=== PATIENT | male | born 1940 | race Caucasian/White ===

== ENCOUNTER 2017-11-18 06:49 | Day surgery (SDC) | payer MEDICARE ==
[~2017-11-18 06:49] MED LIST: Acetaminophen TAB* 325 MG PO PRN; Buffered Lidocaine 0.9% SYRIN* 5 ML/SYR SYRINGE INTRADERM ONE
[2017-11-18] MEDS ORDERED: Midazolam* 1 MG/ML 2 ML VIAL (2 MG) ONE ×2 (08:53→09:10)
[2017-11-18] MEDS ORDERED: acetaZOLAMIDE TAB* 250 MG ONE (09:07)
[2017-11-18] MEDS ORDERED: Lidocaine 2% EPI 1:200000 MPF*10-20 ML VIAL ONE (09:07)
[2017-11-18] MEDS ORDERED: Povidone Iodine 5% OPTH* 30 ML BTL ONE (09:07)
[2017-11-18] MEDS ORDERED: Neomycin/Polymy/Dex OPTH.SUSP* MAXITROL 0.1% 5 ML ONE (09:07)
[2017-11-18] MEDS ORDERED: Phenylephrine 2.5% OPTH.SOL* 2 ML BTL ONE (09:07)
[2017-11-18] MEDS ORDERED: Proparacaine 0.5% OPHTH.SOL* 15 ML BTL ONE (09:07)
[2017-11-18] MEDS ORDERED: Ketorolac 0.5% OPHTH (NF) 0.5 % 5 ML BTL ONE (09:07)
[2017-11-18] MEDS ORDERED: Lidocaine 1% MPF* 2 ML VIAL ONE (09:07)
[2017-11-18] MEDS ORDERED: Cyclopentolate 1% OPTH.SOL* 2 ML BTL ONE (09:07)
[2017-11-18 10:01] VITALS: BP 113/59
--- NOTE | 2017-11-18 22:11 | OP ---
DATE OF OPERATION: 11/18/17 - [facility] DATE OF : 38 SURGEON: Rg Lopez M.D. PREOPERATIVE DIAGNOSIS: Cataract, right eye; primary open glaucoma, right. POSTOPERATIVE DIAGNOSIS: Cataract, right eye; primary open glaucoma, right. OPERATIVE PROCEDURE: Extracapsular cataract extraction with intraocular lens implant, right eye and iStent. DESCRIPTION OF PROCEDURE: The patient was brought to the operating room after being given 1/2% Alcaine with epinephrine drops in the preoperative area. The eye was prepped and draped in the usual sterile fashion. Sterile drape and eyelid speculum were placed. Again, topical 1/2% Alcaine with epinephrine was given. A paracentesis incision was made at the 9 o'clock position with the No.75 blade. Clear cornea incision 2.2 x 2.2-mm was created at the 12 o'clock position starting at the anterior limbus using the 2.2-mm keratome. The anterior chamber was irrigated with 0.4 mL of 1% non-preservative intracameral lidocaine and filled with DisCoVisc. A capsulorrhexis was completed using the cystotome and the Utrata forceps. Hydrodissection was performed with balanced salt solution. The lens nucleus was removed with the Phacoemulsification handpiece without incident. Cortex was removed with the irrigation-aspiration handpiece. The capsular bag was re-inflated using DisCoVisc and an [id number] implant was inserted with the shooter followed by an iStent [id number] inserted into the trabecular mesh work at the 2:30 position with its shooter. The irrigation-aspiration handpiece was used to remove all residual DisCoVisc. The eye was refilled with balanced salt solution and the wound checked and found to be watertight. Topical Maxitrol drops were given. [id number]/[facility] #: [id number] MTDChata
== END 2017-11-18 09:56 | disposition home or self-care (01) ==
LOC: OREAST 06:49
PROVIDERS: ATTEND Specialist
DX: H25.811 Combined forms of age-related cataract, right eye (principal); H40.1131 Primary open-angle glaucoma, bilateral, mild stage; H43.813 Vitreous degeneration, bilateral; H53.021 Refractive amblyopia, right eye; I10 Essential (primary) hypertension; E78.2 Mixed hyperlipidemia; Z86.73 Personal history of transient ischemic attack (TIA), and cerebral infarction without residual deficits
CPT/HCPCS: A9270-GY; C1783; J2250; V2632

== ENCOUNTER 2017-11-25 07:08 | Day surgery (SDC) | payer MEDICARE ==
[~2017-11-25 07:08] MED LIST changes: -Acetaminophen TAB* 325 MG PO PRN
[2017-11-25] MEDS ORDERED: Midazolam* 1 MG/ML 2 ML VIAL (2 MG) ONE (09:15)
[2017-11-25 09:45] VITALS: BP 130/70
[2017-11-25] MEDS ORDERED: Lidocaine 1% MPF* 2 ML VIAL ONE (12:18)
[2017-11-25] MEDS ORDERED: Neomycin/Polymy/Dex OPTH.SUSP* MAXITROL 0.1% 5 ML ONE (12:18)
[2017-11-25] MEDS ORDERED: Proparacaine 0.5% OPHTH.SOL* 15 ML BTL ONE (12:18)
[2017-11-25] MEDS ORDERED: acetaZOLAMIDE TAB* 250 MG ONE (12:18)
[2017-11-25] MEDS ORDERED: Povidone Iodine 5% OPTH* 30 ML BTL ONE (12:18)
[2017-11-25] MEDS ORDERED: Phenylephrine 2.5% OPTH.SOL* 2 ML BTL ONE (12:18)
[2017-11-25] MEDS ORDERED: Ketorolac 0.5% OPHTH (NF) 0.5 % 5 ML BTL ONE (12:18)
[2017-11-25] MEDS ORDERED: Lidocaine 2% EPI 1:200000 MPF*10-20 ML VIAL ONE (12:18)
[2017-11-25] MEDS ORDERED: Cyclopentolate 1% OPTH.SOL* 2 ML BTL ONE (12:18)
--- NOTE | 2017-11-26 05:42 | OP ---
DATE OF OPERATION: 11/25/17 - [facility] DATE OF : 38. SURGEON: Rg Lopez M.D. PREOPERATIVE DIAGNOSES: 1. Cataract, left eye. 2. Primary open-angle glaucoma, left. POSTOPERATIVE DIAGNOSES: 1. Cataract, left eye. 2. Primary open-angle glaucoma, left. OPERATIVE PROCEDURE: Extracapsular cataract extraction with intraocular lens and iStent left. DESCRIPTION OF PROCEDURE: The patient was brought to the operating room after being given 1/2% Alcaine with epinephrine drops in the preoperative area. The eye was prepped and draped in the usual sterile fashion. Sterile drape and eyelid speculum were placed. Again, topical 1/2% Alcaine with epinephrine was given. A paracentesis incision was made at the 3 o'clock position with the No.75 blade. Clear cornea incision 2.2 x 2.2-mm was created at the 6 o'clock position starting at the anterior limbus using the 2.2-mm keratome. The anterior chamber was irrigated with 0.4 mL of 1% non-preservative intracameral lidocaine and filled with DisCoVisc. A capsulorrhexis was completed using the cystotome and the Utrata forceps. Hydrodissection was performed with balanced salt solution. The lens nucleus was removed with the Phacoemulsification handpiece without incident. Cortex was removed with the irrigation-aspiration handpiece. The capsular bag was re-inflated using DisCoVisc and an implant [id number] followed by a [id number] iStent inserted into the trabecular meshwork at the 9 o'clock position was inserted with the shooter. The irrigation-aspiration handpiece was used to remove all residual DisCoVisc. The eye was refilled with balanced salt solution and the wound checked and found to be watertight. Topical Maxitrol drops were given. [id number]/[facility] #: [id number] [facility]
== END 2017-11-25 09:56 | disposition home or self-care (01) ==
LOC: OREAST 07:08
PROVIDERS: ATTEND Specialist
DX: H25.12 Age-related nuclear cataract, left eye (principal); H40.1131 Primary open-angle glaucoma, bilateral, mild stage; H43.819 Vitreous degeneration, unspecified eye; H53.021 Refractive amblyopia, right eye; I10 Essential (primary) hypertension; E78.00 Pure hypercholesterolemia, unspecified; E78.4 Other hyperlipidemia; I71.4 Abdominal aortic aneurysm, without rupture; I67.89 Other cerebrovascular disease; Z87.891 Personal history of nicotine dependence; Z96.1 Presence of intraocular lens
CPT/HCPCS: A9270-GY; C1783; J2250; V2632

== ENCOUNTER 2022-09-03 11:36 | Inpatient (IN) ==
[2022-09-03] MEDS ORDERED: Azithromycin 500 mg/250 ml NS 500 MG/250 ML BAG IVPB ONE (12:40)
[2022-09-03] MEDS ORDERED: NORMOSOL-R pH 7.4 SEPSIS* BAG 2,330 ML IV ONE (12:40)
[2022-09-03] MEDS ORDERED: cefTRIAXone 1 gm/50 mL D5W 1 GM/50 ML BAG IV ONE (12:40)
[2022-09-03 12:41] LABS: Hematocrit 46 % (42-52); Hemoglobin 15.1 g/dL (14.0-18.0); Mean Corpuscular HGB Conc 33 g/dL (31-36); Mean Corpuscular Hemoglobin 29 pg (27-31); Mean Corpuscular Volume 89 fL (80-94); Mean Platelet Volume 7.4 fL (7.4-10.4); Platelet Count 281 10^3/uL (150-450); Red Cell Distribution Width 13 % (10-15); White Blood Count 17.2 10^3/uL (3.5-10.8)
[2022-09-03 13:15] LABS: ABS Basophils 0.1 10^3/ul (0-0.2); ABS Lymphocytes 3.4 10^3/ul (1.0-4.8); ABS Monocytes 2.2 10^3/ul (0-0.8); ABS Neutrophils 11.4 10^3/ul (1.5-7.7); Eosinophil % 0.2 %
[2022-09-03 13:20] LABS: Creatinine, Serum 1.55 mg/dL (0.67-1.17); Potassium 4.2 mmol/L (3.5-5.0)
[2022-09-03 13:21] LABS: Albumin/Globulin Ratio 1.2 (1-3); Calcium 9.4 mg/dL (8.6-10.3); Globulin 3.4 g/dL (2-4); Total Bilirubin 0.9 mg/dL (0.2-1.0); Total Protein 7.4 g/dL (6.4-8.9); eGFR CKD-EPI 44.4 (>60)
[2022-09-03] MEDS ORDERED: Al Hydrox/Mg Hydrox/Simet LIQ 30 ML UDC PO PRN (14:27)
[2022-09-03] MEDS ORDERED: Polyethylene Glycol 3350 17 GM PACKET PO PRN (14:27)
[2022-09-03 14:37] LABS: High Sensitivity Troponin 1 Hr 21 pg/mL (<20)
[2022-09-03 15:01] LABS: C Reactive Protein 187.93 mg/L (<8.01)
[2022-09-03] MEDS: Enoxaparin 40 MG/0.4 ML SYR SUBCUT SCH (16:08)
[2022-09-03] MEDS ORDERED: Albuterol 2.5mg/3 ml (0.083%) NEB.SOLN INH ONE (19:51)
[2022-09-04] MEDS ORDERED: Furosemide 20 mg/2 ml IV VIAL IV ONE (03:15)
[2022-09-04] MEDS ORDERED: Albuterol/Ipratropium NEB.SOL (2.5/0.5 MG) 3 ML NEB.SOLN ONE (03:30)
[2022-09-04] MEDS: Albuterol/Ipratropium NEB.SOL (2.5/0.5 MG) 3 ML NEB.SOLN INH SCH ×6 (03:50→23:27)
[2022-09-04] MEDS ORDERED: Albuterol HFA INHALER 8 gm MDI INH PRN (04:25)
[2022-09-04] MEDS: Tiotropium Brom/Olodaterol MDI INH SCH (04:26)
[2022-09-04 05:43] LABS: ABS Basophils 0.1 10^3/ul (0-0.2); ABS Eosinophils 0.1 10^3/ul (0-0.6); ABS Lymphocytes 3.3 10^3/ul (1.0-4.8); ABS Monocytes 2.6 10^3/ul (0-0.8); ABS Neutrophils 9.3 10^3/ul (1.5-7.7); Eosinophil % 0.6 %; Hematocrit 40 % (42-52); Hemoglobin 13.2 g/dL (14.0-18.0); Lymphocyte % 21.5 %; Mean Corpuscular HGB Conc 33 g/dL (31-36); Mean Corpuscular Hemoglobin 30 pg (27-31); Mean Corpuscular Volume 88 fL (80-94); Mean Platelet Volume 7.8 fL (7.4-10.4); Nucleated Red Blood Cells % 0.1; Platelet Count 239 10^3/uL (150-450); Red Blood Count 4.47 10^6 /uL (4.18-5.48); Red Cell Distribution Width 14 % (10-15); White Blood Count 15.5 10^3/uL (3.5-10.8)
[2022-09-04 06:05] LABS: Calcium 8.6 mg/dL (8.6-10.3); Creatinine, Serum 1.56 mg/dL (0.67-1.17); Potassium 4.1 mmol/L (3.5-5.0); eGFR CKD-EPI 44.1 (>60)
[2022-09-04] MEDS: Azithromycin 500 mg/250 ml NS 500 MG/250 ML BAG IVPB SCH (12:42)
[2022-09-04] MEDS: Enoxaparin 40 MG/0.4 ML SYR SUBCUT SCH (15:23)
[2022-09-04] MEDS: cefTRIAXone 1 gm/50 mL D5W 1 GM/50 ML BAG IV SCH (15:23)
[2022-09-05] MEDS: Albuterol/Ipratropium NEB.SOL (2.5/0.5 MG) 3 ML NEB.SOLN INH SCH ×4 (04:24→18:48)
[2022-09-05 06:12] LABS: Hematocrit 42 % (42-52); Hemoglobin 13.7 g/dL (14.0-18.0); Mean Corpuscular HGB Conc 33 g/dL (31-36); Mean Corpuscular Hemoglobin 29 pg (27-31); Mean Corpuscular Volume 89 fL (80-94); Mean Platelet Volume 7.9 fL (7.4-10.4); Platelet Count 271 10^3/uL (150-450); Red Blood Count 4.69 10^6 /uL (4.18-5.48); Red Cell Distribution Width 14 % (10-15); White Blood Count 16.4 10^3/uL (3.5-10.8)
[2022-09-05 06:28] LABS: Calcium 8.9 mg/dL (8.6-10.3); Creatinine, Serum 1.43 mg/dL (0.67-1.17); Magnesium 2.2 mg/dL (1.9-2.7); eGFR CKD-EPI 48.9 (>60)
[2022-09-05 07:13] LABS: ABS Basophils 0.1 10^3/ul (0-0.2); ABS Lymphocytes 3.3 10^3/ul (1.0-4.8); ABS Monocytes 1.8 10^3/ul (0-0.8); ABS Neutrophils 11.4 10^3/ul (1.5-7.7); Eosinophil % 0.1 %; Lymphocyte % 19.8 %; RBC Morphology Normal (Normal)
[2022-09-05] MEDS: Tiotropium Brom/Olodaterol MDI INH SCH (07:43)
[2022-09-05] MEDS: Azithromycin 500 mg/250 ml NS 500 MG/250 ML BAG IVPB SCH (12:33)
[2022-09-05] MEDS: cefTRIAXone 1 gm/50 mL D5W 1 GM/50 ML BAG IV SCH (14:26)
[2022-09-05] MEDS: Enoxaparin 40 MG/0.4 ML SYR SUBCUT SCH (16:08)
[2022-09-06] MEDS: Albuterol/Ipratropium NEB.SOL (2.5/0.5 MG) 3 ML NEB.SOLN INH SCH ×2 (00:11→07:18)
[2022-09-06] MEDS: Tiotropium Brom/Olodaterol MDI INH SCH (07:21)
[2022-09-06] MEDS ORDERED: Albuterol/Ipratropium NEB.SOL (2.5/0.5 MG) 3 ML NEB.SOLN INH PRN (07:28)
[2022-09-06] MEDS ORDERED: Bismuth Subsalicylate (BTL) 525 MG/30 ML (BULK BTL) PO PRN (08:55)
[2022-09-06] MEDS: Azithromycin 500 mg/250 ml NS 500 MG/250 ML BAG IVPB SCH (11:43)
[2022-09-06] MEDS: cefTRIAXone 1 gm/50 mL D5W 1 GM/50 ML BAG IV SCH (13:08)
[2022-09-06] MEDS: Enoxaparin 40 MG/0.4 ML SYR SUBCUT SCH (15:35)
[2022-09-07 06:22] LABS: Hematocrit 41 % (42-52); Mean Corpuscular HGB Conc 34 g/dL (31-36); Mean Corpuscular Hemoglobin 30 pg (27-31); Mean Corpuscular Volume 88 fL (80-94); Mean Platelet Volume 7.6 fL (7.4-10.4); Platelet Count 315 10^3/uL (150-450); Red Blood Count 4.69 10^6 /uL (4.18-5.48); Red Cell Distribution Width 14 % (10-15); White Blood Count 13.1 10^3/uL (3.5-10.8)
[2022-09-07 06:35] LABS: Calcium 8.9 mg/dL (8.6-10.3); Creatinine, Serum 1.2 mg/dL (0.67-1.17); Magnesium 2.2 mg/dL (1.9-2.7); Potassium 4.5 mmol/L (3.5-5.0); eGFR CKD-EPI 60.4 (>60)
[2022-09-07 06:49] LABS: ABS Lymphocytes 3.6 10^3/ul (1.0-4.8); ABS Monocytes 1.6 10^3/ul (0-0.8); ABS Neutrophils 7.8 10^3/ul (1.5-7.7); Eosinophil % 0.3 %; Lymphocyte % 27.7 %; Nucleated Red Blood Cells % 0.1
[2022-09-07] MEDS: Tiotropium Brom/Olodaterol MDI INH SCH (07:47)
[2022-09-07] MEDS: cefTRIAXone 1 gm/50 mL D5W 1 GM/50 ML BAG IV SCH (13:31)
[2022-09-07] MEDS: Enoxaparin 40 MG/0.4 ML SYR SUBCUT SCH (14:50)
[2022-09-07] MEDS ORDERED: Albuterol/Ipratropium NEB.SOL (2.5/0.5 MG) 3 ML NEB.SOLN INH SCH (19:00)
[2022-09-08 05:54] LABS: Hematocrit 42 % (42-52); Hemoglobin 13.6 g/dL (14.0-18.0); Mean Corpuscular HGB Conc 32 g/dL (31-36); Mean Corpuscular Hemoglobin 29 pg (27-31); Mean Corpuscular Volume 88 fL (80-94); Mean Platelet Volume 7.4 fL (7.4-10.4); Platelet Count 351 10^3/uL (150-450); Red Blood Count 4.76 10^6 /uL (4.18-5.48); Red Cell Distribution Width 13 % (10-15); White Blood Count 15.4 10^3/uL (3.5-10.8)
[2022-09-08 06:17] LABS: C Reactive Protein 28.81 mg/L (<8.01); Calcium 8.8 mg/dL (8.6-10.3); Creatinine, Serum 1.24 mg/dL (0.67-1.17); Potassium 4.8 mmol/L (3.5-5.0)
[2022-09-08 06:22] LABS: ABS Basophils 0.1 10^3/ul (0-0.2); ABS Eosinophils 0.1 10^3/ul (0-0.6); ABS Lymphocytes 3.5 10^3/ul (1.0-4.8); ABS Neutrophils 10.8 10^3/ul (1.5-7.7); Eosinophil % 0.5 %; Lymphocyte % 22.7 %; Nucleated Red Blood Cells % 0.1; RBC Morphology Normal (Normal)
[2022-09-08] MEDS ORDERED: Albuterol/Ipratropium NEB.SOL (2.5/0.5 MG) 3 ML NEB.SOLN INH PRN (06:51)
[2022-09-08] MEDS: Tiotropium Brom/Olodaterol MDI INH SCH (07:35)
[2022-09-08] MEDS: Albuterol HFA INHALER 8 gm MDI INH SCH ×2 (07:35→14:10)
[2022-09-08] MEDS: cefTRIAXone 1 gm/50 mL D5W 1 GM/50 ML BAG IV SCH (13:48)
[2022-09-08 15:41] VITALS: BP 123/79
== END 2022-09-08 15:44 | disposition home or self-care (01) | DRG 871 ==
LOC: ED 11:36 → EDHOLD 11:36 → SUATTDRO 14:09 → OBSVTOIN 14:09 → MEDTELE 09-04 00:50
PROVIDERS: ADMIT Internal Medicine; ATTEND Internal Medicine